=== PATIENT | female | born 1970 | race Hispanic/Latino ===

== ENCOUNTER 2018-02-20 02:01 | Inpatient (IN) | payer OTHER ==
[~2018-02-20] VITALS: Ht 152.4 cm; Wt 50.3 kg
[~2018-02-20 02:01] MED LIST: SYNTHROID150 MCG PO
[2018-02-20] MEDS ORDERED: ACID CONTROLLER20 MG PO (06:31)
[2018-02-20] MEDS ORDERED: TRAMADOL HCL50 M1 PO (06:32)
[2018-02-20] MEDS ORDERED: LEVSIN-SL0.125 MG SL (06:33)
[2018-02-20 07:48] LABS: ABSOLUTE BASOPHIL COUNT 0 /CUMM (0.0-0.2); ABSOLUTE EOSINOPHIL COUNT 0.1 /CUMM (0.0-0.7); ABSOLUTE GRANULOCYTE CT 5.3 /CUMM (1.4-6.5); ABSOLUTE LYMPH COUNT 1.1 /CUMM (1.2-3.4); ABSOLUTE MONOCYTE COUNT 0.4 /CUMM (0.10-0.60); BASOPHIL % 0.2 % (0.0-2.0); EOSINOPHIL % 0.8 % (0-5); GRANULOCYTE % 76.8 % (42.2-75.2); HEMATOCRIT 36.3 % (37-47); MEAN CORPUSCULAR HGB 32.3 PG (27.0-31.0); MEAN CORPUSCULAR VOLUME 95.2 FL (81.0-99.0); MEAN PLATELET VOLUME 7.3 FL (7.4-10.4); PLATELET COUNT 281 /CUMM (130-400); RBC DISTRIBUTION WIDTH 13.2 % (11.5-14.5); RED BLOOD CELL CT 3.82 /CUMM (4.20-5.40); WHITE BLOOD CELL COUNT 6.9 /CUMM (4.8-10.8)
--- NOTE | 2018-02-20 11:54 | Admission Core Measures ---
Acute Coronary Syndrome (CM) ACS Core Measures Acute Coronary Syndrome Diagnosis No Congestive Heart Failure (NEW) CHF Core Measures Congestive Heart Failure Diagnosis No Cerebrovascular Accident CVA Core Measures CVA/TIA Diagnosis No Venous Thromboembolism VTE Core Stephanie (View Protocol) VTE Risk Factors Surgery No Mechanical VTE Prophylaxis d/t N/A MechProphylax Ordered No VTE Pharm Prophylaxis d/t NA PharmProphylax ordered Problem List As ranked by this Provider includes Assessment & Plan 1. Carcinoid tumor HOME MEDS Home Med List Famotidine (Acid Controller) 20 MG TABLET 2 TAB PO DAILY reflux (Reported) Hyoscyamine Sulfate (Levsin-Sl) 0.125 MG TAB.SUBL 1 TAB SL EVERY 4 HRS/AWAKE PRN supp (Reported) Levothyroxine Sodium (Synthroid) 150 MCG TABLET 1 TAB PO DAILY THYROID ( Reported) Tramadol HCl 50 MG TABLET 1 TAB PO EVERY 12 HRS pain (Reported)
--- NOTE | 2018-02-20 12:30 | Operative Report ---
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 Pathology indicated that this was a carcinoid tumor. Patient underwent a metastatic workup which is negative. She was referred to al for surgical consultation and scheduled for surgery. Operative/Procedure Note Note: On the day before her operation she did a bowel prep at home including oral laxatives and oral antibiotics. On the morning of her procedure she drank 12 ounces of apple juice prior to coming to the hospital. In the preop. She was giving Neurontin and Tylenol per out ERAS protocol. Her Entereg was held secondary to recent prescription narcotic exposure. She was taken to the operating room placed in supine position. She underwent induction of general anesthesia placement of the tracheal tube. A Gonzales catheter was placed. At this point Block was performed bilaterally by the anesthesia department. Next the patient's arms were tucked and she was secured to the bed. Gain access to the abdominal cavity using a Veress needle technique the Veress needle was inserted in the midclavicular line just under the ribs and the left abdomen. The abdomen was insufflated to 50 mmHg and then the ports were placed on the line drawn between the pubic symphysis in the midclavicular line on the left. The #1, #2 and #4 ports were 8 mm ports. The #3 port was a 12 mm port.. A left lateral port was placed for the cyst and this was an 8 mm air support. Patient was placed in slight Trendelenburg left side down the ileocolic pedicle was identified and the small bowel was swept away from the base of the pedicle. The robot was undocked. The cecum was grasped and elevated this caused tenting in the mesentery with ileocolic vessels were. I incised the peritoneum just on the inferior edge of these vessels and entered the avascular retroperitoneal space. I bluntly developed the space until clearly is generous fascia the right ureter and the duodenum. Divided the mesentery parallel to the ileocolic vessels on the inferior edge of the ileocolic vessels all the way to the level of the terminal ileum using the robotic vessel sealer. I went back to my medial to lateral dissection freed all the retroperitoneal attachments of the medial rectum and the right colon from Gerota's fascia until I reached the lateral sidewall. Next the colon was pulled medially and I took down the white line of Toldt all the way to and including the hepatic flexure. At this point I chose my proximal site of transection. There was no stevo on the terminal ileum there was slight dimpling of the terminal ileum about 20 cm from the ileocecal valve. Because of this I chose to transect the terminal ileum about 25 cm from the ileocecal valve. The mesentery was cleared here and then a WILL white loaded stapler was used to divide the bowel. I chose my a distal site of transection on the colon. This was just about the level of the hepatic flexure a robotic blue loaded WILL stapler was used to divide the bowel and took 2 firings to complete the transfer. Next the specimen is pushed into the right lower quadrant. I lined up the terminal ileum and transverse colon for isoperistaltic [id number] anastomosis. Stay sutures were performed on either end of the anastomosis with interrupted 2-0 Vicryl suture. 2 enterotomies were intentionally created 1 near the transected end of the terminal ileum and one along the tenia of the transverse colon about 6 cm from the transected end. A robotic WILL stapler was used to create a common channel. This was a 45 mm white loaded stapler. One arm of the stapling device was placed on each limb of the bowel. The stapler was closed and fired. Stapler was opened and retrieved I inspected the lumen which appeared hemostatic and the staple line appeared sound. The common enterotomy was then closed in 2 layers. The deep layer was closed with a running 2-0V lock suture. The outer layer was closed with interrupted 2-0 Vicryl sutures placed in a Lembert fashion. At this point we inspected for hemostasis any residual blood was irrigated and aspirated away. A locking grasper was used to grab the end of the transected the specimen. The pneumoperitoneum was let down in the #1 suprapubic port was extended to 3 cm. This is a Pfannenstiel type incision. Wound protector was placed through the incision and the specimen was totally extracted. Next a Pfannenstiel incision was closed in layers. First the peritoneum was closed with a running 2-0 Vicryl. The fascia was closed transversely with 0 PDS suture. The subcu was copiously irrigated and the skin was closed with skin marianne. The other ports were closed with subcuticular 4-0 Monocryl and then the surface of skin was sealed with skin glue. Dry sterile dressing was placed over the Pfannenstiel incision and the procedure was concluded. The patient tolerated the procedure well. Patient was extubated in the operating room and taken to recovery area in good condition. At the end of the separation all needle sponges and measurements were accounted for. The specimen was opened on the back table there was a small nodule in the terminal ileum about 5 cm from the ileocecal valve which was marked with a suture. Findings: Small nodule in terminal ileum No evidence of metastatic disease Discharge Disposition: Same Day Admissions CC: Adan WRIGHT,Patito
[2018-02-20 13:30] VITALS: BP 120/80
[2018-02-20 15:20] VITALS: BP 118/70
--- NOTE | 2018-02-20 16:14 | PN- General Surgery ---
Subjective Subjective: Post op check Awake, alert No complaints post op Denies nausea, tolerating clear liquids Has not ambulated yet Objective Vital Signs and I&Os Vital Signs Date Time Temp Pulse Resp B/P B/P Pulse O2 O2 Flow FiO2 Mean Ox Delivery Rate 02/20 1520 97.9 73 18 118/70 99 02/20 1330 97.9 64 18 120/80 99 Nasal 2.0L Cannula 02/20 1325 99 Nasal 2.0L Cannula Intake & Output 02/20 1600 02/20 0800 02/20 0000 02/19 1600 02/19 0800 02/19 0000 Intake Total 475 Output Total 575 Balance -100 Intake, IV 35 Intake, Oral 440 Output, Urine 575 Patient 109 lb 104 lb Weight Weight Bed scale Measurement Method Physical Exam: vss, afebrile General: alert and oriented times three chest: clear anteriorly bilaterally, RRR Abd: soft, appropriately tender around incisions Ext: warm, no edema Wds; all look good, no drainage Assessment/Plan Assessment/Plan 47yo female s/p robotic ileocolectomy eras protocol - no entereg or celebrex per Dr Dave pain management dc planning clears tonight Core Measures Venous Thromboembolism VTE Risk Factors Surgery No Mechanical VTE Prophylaxis d/t N/A MechProphylax Ordered No VTE Pharm Prophylaxis d/t NA PharmProphylax ordered
[2018-02-20 17:53] VITALS: BP 120/80
[2018-02-20 19:45] VITALS: BP 122/76
[2018-02-20 21:00] VITALS: BP 120/80
[2018-02-21 04:38] VITALS: BP 120/80
[2018-02-21 06:46] VITALS: BP 118/80
[2018-02-21 08:48] LABS: ABSOLUTE BASOPHIL COUNT 0 /CUMM (0.0-0.2); ABSOLUTE EOSINOPHIL COUNT 0.1 /CUMM (0.0-0.7); ABSOLUTE GRANULOCYTE CT 7.1 /CUMM (1.4-6.5); ABSOLUTE LYMPH COUNT 1.8 /CUMM (1.2-3.4); ABSOLUTE MONOCYTE COUNT 0.4 /CUMM (0.10-0.60); BASOPHIL % 0.4 % (0.0-2.0); EOSINOPHIL % 0.9 % (0-5); GRANULOCYTE % 75.4 % (42.2-75.2); HEMATOCRIT 35.8 % (37-47); MEAN CORPUSCULAR HGB 32.5 PG (27.0-31.0); MEAN CORPUSCULAR HGB CONC 33.6 G/DL (33.0-37.0); MEAN CORPUSCULAR VOLUME 96.8 FL (81.0-99.0); MEAN PLATELET VOLUME 8.1 FL (7.4-10.4); PLATELET COUNT 234 /CUMM (130-400); WHITE BLOOD CELL COUNT 9.4 /CUMM (4.8-10.8)
--- NOTE | 2018-02-21 09:06 | PN- General Surgery ---
Surgical Brief Attending Note Brief Attending Note: Patient is postop day 1 from robotic right colectomy Patient appears well this morning DC Gonzales catheter and advance diet per ERAS protocol Possible discharge home later today
[2018-02-21 12:03] VITALS: BP 110/70
[2018-02-21 13:59] VITALS: BP 108/60
--- NOTE | 2018-02-21 15:21 | Patient Discharge Instructions ---
Discharge Instructions General Discharge Information You were seen/treated for: carcinoid tumor of terminal ileum You had these procedures: Surgery Date: 02/20/18 Name of Procedure: Robotic ileocolectomy Watch for these problems: fever>101.3, increased pain, redness/swelling/drainage, dizziness, shortness of breath, chest pains Call Surgeon to remove: [place] No bath, but you may shower: Yes Other wound care: staple removal around post-op day#14. keep incisions clean & dry. ok to shower. Diet Continue normal diet: Yes Recommended Diet: Low Residue Activity Full Activity/No Limits: No Activity Self Limited: Yes Pounds, do NOT lift more than: 10 Other activity limits: no heavy lifting. no strenuous activity. Acute Coronary Syndrome Inclusion Criteria At DC or during hospital stay patient has or had the following: ACS DIAGNOSIS No Discharge Core Measures Meds if any: Prescribed or Continued at Discharge Meds if any: NOT Prescribed or Continued at Discharge Congestive Heart Failure Inclusion Criteria At DC or during hospital stay patient has or had the following: CHF DIAGNOSIS No Discharge Core Measures Meds if any: Prescribed or Continued at Discharge Meds if any: NOT Prescribed or Continued at Discharge Cerebrovascular accident Inclusion Criteria At DC or during hospital stay patient has or had the following: CVA/TIA Diagnosis No Discharge Core Measures Meds if any: Prescribed or Continued at Discharge Meds if any: NOT Prescribed or Continued at Discharge Venous thromboembolism Inclusion Criteria VTE Diagnosis No VTE Type NONE VTE Confirmed by (Test) NONE Discharge Core Measures - Per Current guidelines, there needs to be overlap - treatment for the first 5 days of Warfarin therapy. - If discharged on Warfarin prior to 5 days of - overlap therapy, the patient will need to be - assessed for post discharge needs including - *Post discharge parental anticoagulation - *Warfarin and/or parental anticoagulation education - *Follow up date to check INR post discharge At least 5 days overlap therapy as Inpatient No Meds if any: Prescribed or Continued at Discharge Note: Overlap Therapy is Warfarin and Anticoagulant Meds if any: NOT Prescribed or Continued at Discharge
[2018-02-21] MEDS ORDERED: COLACE100 M1 PO (15:24)
[2018-02-21] MEDS ORDERED: PERCOCET 5-3251 EACH PO (15:24)
--- NOTE | 2018-02-21 15:28 | Surg Short-stay <48hrs Dis Sum ---
Visit Information Visit Dates Admission Date: 02/20/18 Discharge Date: 02/22/18 Surgical Short Stay DC Summary Admission Diagnosis: Carcinoid tumor of terminal ileum Final Diagnosis: Carcinoid tumor of terminal ileum Status post robotic right colectomy Procedure(s): Surgery Date: 02/20/18 Name of Procedure: Robotic ileocolectomy Summary/Significant Findings: Electively scheduled robotic ileocolectomy on 02/20/18 by for a history of carcinoid tumor of terminal ileum. ERAS protocol initiated post-op. Pain control transitioned to oral medication prior to discharge home. Tolerating diet advancement prior to discharge home. Condition at Discharge: stable Discharge Disposition: home or self care Discharge instructions provided to patient/family: Yes Post discharge follow-up plan: one week follow up with staple removal around post-op day#14 Copies to: Daiana WRIGHT,Bridgette
[2018-02-21 22:34] VITALS: BP 130/80
[2018-02-22 05:36] VITALS: BP 126/78
--- NOTE | 2018-02-22 08:21 | PN- General Surgery ---
See Addendum Subjective Subjective: Intermittent pain, well controlled with oral pain medication, had a bowel movement this morning, no nausea no vomiting, tolerating her diet Objective Vital Signs and I&Os Vital Signs Date Time Temp Pulse Resp B/P B/P Pulse O2 O2 Flow FiO2 Mean Ox Delivery Rate 02/22 0536 98.6 60 20 126/78 99 Room Air 02/21 2234 97.5 61 18 130/80 97 02/21 1359 98.2 72 20 108/60 100 Room Air 02/21 1203 98.2 80 20 110/70 99 Room Air Intake & Output 02/22 1600 02/22 0800 02/22 0000 02/21 1600 02/21 0800 02/21 0000 Intake Total 120 916 009 0456 Output Total 300 750 450 750 Balance -300 120 -150 150 255 Intake, IV 150 600 525 Intake, Oral 120 450 480 Number 0 0 Bowel Movements Output, Urine 300 750 450 750 Patient 111 lb Weight Physical Exam: Well-developed well-nourished no apparent distress. HEENT: Atraumatic, extraocular motion intact Neck: Supple, no lymphadenopathy Respiratory: No respiratory distress Abdomen: Minimal distention, portal sites are clean dry and intact, lower abdominal incision, dressing clean dry and intact, trace amount of bloody staining, no signs of infection. Appropriate tenderness in the lower abdominal region. Positive bowel sounds. Extremities: No edema, no calf pain Neuro: Alert and oriented x3 Psych: Mood affect normal, normal memory normal judgment. Skin: Warm and dry, no rash on exposed skin Results Last 48 Hours of Labs: Laboratory Tests 02/21 0822 Chemistry Sodium (137 - 145 mmol/L) 142 Potassium (3.5 - 5.1 mmol/L) 3.9 Chloride (98 - 107 mmol/L) 108 H Carbon Dioxide (22 - 30 mmol/L) 23 Anion Gap (5 - 16) 11 BUN (7 - 17 mg/dL) 5 L Creatinine (0.5 - 1.0 mg/dL) 0.6 Estimated GFR (>60 ml/min) > 60 BUN/Creatinine Ratio (7 - 25 %) 8.3 Hematology CBC w Diff NO MAN DIFF REQ WBC (4.8 - 10.8 /CUMM) 9.4 RBC (4.20 - 5.40 /CUMM) 3.70 L Hgb (12.0 - 16.0 G/DL) 12.0 Hct (37 - 47 %) 35.8 L MCV (81.0 - 99.0 FL) 96.8 MCH (27.0 - 31.0 PG) 32.5 H MCHC (33.0 - 37.0 G/DL) 33.6 RDW (11.5 - 14.5 %) 13.0 Plt Count (130 - 400 /CUMM) 234 MPV (7.4 - 10.4 FL) 8.1 Gran % (42.2 - 75.2 %) 75.4 H Lymphocytes % (20.5 - 51.1 %) 19.5 L Monocytes % (1.7 - 9.3 %) 3.8 Eosinophils % (0 - 5 %) 0.9 Basophils % (0.0 - 2.0 %) 0.4 Absolute Granulocytes (1.4 - 6.5 /CUMM) 7.1 H Absolute Lymphocytes (1.2 - 3.4 /CUMM) 1.8 Absolute Monocytes (0.10 - 0.60 /CUMM) 0.4 Absolute Eosinophils (0.0 - 0.7 /CUMM) 0.1 Absolute Basophils (0.0 - 0.2 /CUMM) 0 Assessment/Plan Assessment/Plan postop day 2 from robotic right colectomy ERAS protocol Advanced to low residual diet this morning Pain medication as needed Positive BM this morning Stable for discharge home today if she tolerates her breakfast, discussed patient who understands and agrees with plan Core Measures Venous Thromboembolism VTE Risk Factors Surgery No Mechanical VTE Prophylaxis d/t N/A MechProphylax Ordered No VTE Pharm Prophylaxis d/t NA PharmProphylax ordered
[2018-02-22] MEDS ORDERED: GABAPENTIN300 M2 PO (08:23)
== END 2018-02-22 12:00 | DRG 331 ==
LOC: 2NA 02:01 → SDA 02:01 → ENRESERV 12:18 → ENTRNSPT 12:58 → EDTRNSPTSTS 13:07 → 2NA 13:16 → CMPTRNSPT 13:42 → 2NA 20:15 → ENPENDDIS 02-22 09:21 → 2NA 02-22 12:00
PROVIDERS: Colon & Rectal Surgery; Nurse Practitioner
PROC: 8E0W4CZ Robotic Assisted Procedure of Trunk Region, Percutaneous Endoscopic Approach (ICD-10-PCS; principal; 2018-02-20)
PROC: 0DBB4ZZ Excision of Ileum, Percutaneous Endoscopic Approach (ICD-10-PCS; principal; 2018-02-20)
PROC: 0DBL4ZZ Excision of Transverse Colon, Percutaneous Endoscopic Approach (ICD-10-PCS; principal; 2018-02-20)
DX: C7A.012 Malignant carcinoid tumor of the ileum (principal); J45.909 Unspecified asthma, uncomplicated; E03.9 Hypothyroidism, unspecified; F17.200 Nicotine dependence, unspecified, uncomplicated
CPT/HCPCS: 2NASP; 36592; 82436; 87086; C9290; J0131; J0690; J1100; J1644; J1885; J2405; J3490